=== PATIENT | female | born 1965 | race Caucasian/White ===

== ENCOUNTER 2018-03-29 08:28 | Inpatient (IN) | payer BC ==
[~2018-03-29] VITALS: Ht 157.5 cm; Wt 84.6 kg
[~2018-03-29 08:28] MED LIST: BACITRACIN 50,000 UNIT ONE; BUPIVACAINE/PF-EPI 0.5% 1:200K ONE; EPINEPHRINE 1 MG/ML, 1ML ONE; GENTAMICIN 80 MG/2 ML ONE; LIDOCAINE/PF 1%, 30ML ONE; THROMBIN 5,000 UNIT VIAL TP ONE; VANCOMYCIN 1,000 MG ONE
[2018-03-29] MEDS ORDERED: OXYcodone 5 MG/5 ML ORAL.SOL UDC PO PRN (09:00)
[2018-03-29] MEDS ORDERED: MEPERIDINE/PF 25MG/0.5ML IVPush PRN (09:00)
[2018-03-29] MEDS ORDERED: ONDANSETRON 2MG/ML, 2ML IVPush PRN (09:00)
[2018-03-29] MEDS ORDERED: LABETALOL 5MG/ML, 20ML IV PRN ×2 (09:00→18:30)
[2018-03-29] MEDS ORDERED: MIDAZOLAM 1 MG/ML, 2ML IV PRN (09:00)
[2018-03-29] MEDS ORDERED: HYDROmorphone 1 MG/ML, 1ML IV PRN (09:00)
[2018-03-29] MEDS ORDERED: GABA300C10 PO (09:02)
[2018-03-29] MEDS ORDERED: ASPI325T17 PO (09:02)
[2018-03-29] MEDS ORDERED: NAPR220C2 PO (09:02)
[2018-03-29] MEDS ORDERED: LACTATED RINGERS 1,000 ML IV SCH (09:04)
[2018-03-29] MEDS ORDERED: LIDOCAINE-MPF 1%, 2ML ONE (09:08)
[2018-03-29] MEDS ORDERED: LIDOCAINE-MPF 1%, 2ML INFIL ONE (09:30)
[2018-03-29] MEDS ORDERED: DEXAMETHASONE 4 MG/ML, 1ML ONE (10:37)
[2018-03-29] MEDS ORDERED: CEFAZOLIN 1,000 MG ONE ×4 (10:37→15:46)
[2018-03-29] MEDS ORDERED: ONDANSETRON 2MG/ML, 2ML ONE (10:37)
[2018-03-29] MEDS ORDERED: METOCLOPRAMIDE 5 MG/ML, 2ML ONE (10:37)
[2018-03-29] MEDS ORDERED: ROCURONIUM 10MG/ML,5ML ONE ×2 (10:38→12:58)
[2018-03-29] MEDS ORDERED: PROPOFOL 10 MG/ML, 20ML ONE ×5 (10:38→15:12)
[2018-03-29] MEDS ORDERED: MIDAZOLAM 1 MG/ML, 2ML ONE ×2 (10:38)
[2018-03-29] MEDS ORDERED: EPHEDRINE 50 MG/ML, 1ML ONE (10:38)
[2018-03-29] MEDS ORDERED: LIDOCAINE-MPF 2% ,5ML ONE (10:38)
[2018-03-29] MEDS ORDERED: FENTANYL PF 100 MCG/2ML ONE ×4 (10:39→17:08)
[2018-03-29] MEDS ORDERED: WATER-INJECTION,STERILE 10 ML IV ONE (10:45)
[2018-03-29] MEDS ORDERED: REMIFENTANIL 1 MG ONE (12:01)
[2018-03-29] MEDS ORDERED: KETAMINE 10 MG/ML, 20ML ONE (12:03)
[2018-03-29] MEDS ORDERED: LIDOCAINE GEL 2%, 5ML ONE (12:06)
[2018-03-29] MEDS ORDERED: GENTAMICIN 80 MG/2 ML ONE (12:16)
[2018-03-29] MEDS ORDERED: morphine SULFATE/PF 1 MG/ML, 10ML ONE (13:30)
[2018-03-29] MEDS ORDERED: OXYcodone 5 MG/5 ML ORAL.SOL UDC ONE ×2 (17:08→17:09)
[2018-03-29] MEDS: FENTANYL PF 100 MCG/2ML IV PRN ×2 (17:10→17:15)
[2018-03-29 18:00] VITALS: BP 117/59
[2018-03-29] MEDS ORDERED: DIAZEPAM 5 MG/ML, 2ML IV PRN (18:30)
[2018-03-29] MEDS ORDERED: DIAZEPAM 5 MG TABLET PO PRN (18:30)
[2018-03-29] MEDS ORDERED: HYDROmorphone 2 MG/ML, 1ML IM PRN (18:30)
[2018-03-29] MEDS ORDERED: ONDANSETRON 2MG/ML, 2ML IV PRN (18:30)
[2018-03-29] MEDS ORDERED: HYDROmorphone 2MG TABLET PO PRN (18:30)
[2018-03-29] MEDS: D5%-0.9% NACL+KCL 20MEQ 1,000 ML IV SCH (20:25)
[2018-03-29] MEDS: CEFAZOLIN PMX 1GM/50ML 50 ML IVPB SCH (20:25)
[2018-03-29 21:27] VITALS: BP 116/61
[2018-03-29] MEDS ORDERED: PROMETHAZINE 25 MG SUPP PR PRN (22:30)
[2018-03-29] MEDS ORDERED: PROCHLORPERAZINE 25 MG SUPP PR PRN (22:30)
[2018-03-29 22:58] LABS: TROPONIN I < 0.015 ng/mL (0.000-0.045)
[2018-03-29] MEDS: FAMOTIDINE 20 MG/2 ML IVPush SCH (23:06)
[2018-03-30 01:00] VITALS: BP 90/51
[2018-03-30] MEDS ORDERED: DIAZEPAM 5 MG/ML, 2ML IV PRN (02:00)
[2018-03-30] MEDS ORDERED: DIPHENHYDRAMINE 50 MG/ML, 1ML IVPush PRN (02:30)
[2018-03-30] MEDS: ACETAMINOPHEN 500 MG TABLET PO SCH ×5 (02:30→22:12)
[2018-03-30 03:05] VITALS: BP 111/66
[2018-03-30] MEDS: DIPHENHYDRAMINE 50 MG/ML, 1ML IVPush PRN ×2 (03:15→14:52)
[2018-03-30] MEDS: D5%-0.9% NACL+KCL 20MEQ 1,000 ML IV SCH ×3 (03:15→16:30)
[2018-03-30] MEDS ORDERED: NITROGLYCERIN 0.4 MG BOTTLE (25 TABS) SL PRN (03:30)
[2018-03-30] MEDS: CEFAZOLIN PMX 1GM/50ML 50 ML IVPB SCH (04:35)
[2018-03-30 05:49] LABS: BASOPHILS # (AUTO) 0.05 x10^3/uL (0-0.1); BASOPHILS % (AUTO) 1 % (0-1); EOSINOPHILS # (AUTO) 0.09 x10^3/uL (0-0.4); EOSINOPHILS % (AUTO) 1 % (1-7); LYMPHOCYTES # (AUTO) 1.07 x10^3/uL (1-3.4); LYMPHOCYTES % (AUTO) 11 % (22-44); MD NO; MEAN CORPUSCULAR HEMOGLOBIN 30.1 pg (27.0-34.8); MEAN CORPUSCULAR HGB CONC 33.5 g/dL (32.4-35.8); MEAN CORPUSCULAR VOLUME 89.9 fL (80-100); MEAN PLATELET VOLUME 8.6 fL (7.4-10.4); MONOCYTES # (AUTO) 0.62 x10^3/uL (0.2-0.8); MONOCYTES % (AUTO) 6 % (2-9); NEUTROPHILS # (AUTO) 8.16 x10^3/uL (1.8-6.8); NEUTROPHILS % (AUTO) 82 % (42-75); PLATELET COUNT 220 x10^3/uL (130-400); RED BLOOD COUNT 3.44 x10^6/uL (3.82-5.3); RED CELL DISTRIBUTION WIDTH 13.6 % (9.6-15.2)
[2018-03-30 06:21] LABS: ALBUMIN 2.9 g/dL (3.4-5.0); ANION GAP 7 mmol/L (5-15); CALCIUM 7.9 mg/dL (8.5-10.1); CHLORIDE 110 mmol/L (98-107)
[2018-03-30 06:29] LABS: ALANINE AMINOTRANSFERASE 17 U/L (12-78); ALKALINE PHOSPHATASE 67 U/L (45-117); BILIRUBIN,TOTAL 0.2 mg/dL (0.2-1.0); CHOL/HDL RATIO 2.6; CHOLESTEROL, TOTAL 161 mg/dL (140-239); CREATININE 0.54 mg/dL (0.55-1.02); HDL CHOL % 39 % (28-40); HDL CHOLESTEROL (DIRECT) 63 mg/dL (40-60); LDL CHOLESTEROL,CALCULATED 89 mg/dL (54-169); LDL/HDL RATIO 1.4 (0.5-3.0); TOTAL PROTEIN 6.3 g/dL (6.4-8.2); TRIGLYCERIDES 44 mg/dL (50-200); TROPONIN I < 0.015 ng/mL (0.000-0.045); VLDL CHOLESTEROL 9 mg/dL (0-25)
[2018-03-30 07:54] VITALS: BP 94/54
[2018-03-30] MEDS: FAMOTIDINE 20 MG/2 ML IVPush SCH ×2 (08:59→22:11)
[2018-03-30] MEDS: SENNA/DOCUSATE TABLET PO SCH (09:31)
[2018-03-30 11:24] LABS: TROPONIN I < 0.015 ng/mL (0.000-0.045)
[2018-03-30] MEDS ORDERED: REGADENOSON 0.4 MG/5 ML SYRINGE ONE (11:25)
[2018-03-30 14:58] VITALS: BP 126/77
[2018-03-30 19:48] VITALS: BP 105/60
[2018-03-30] MEDS: CEFAZOLIN PMX 1GM/50ML 50 ML IV SCH (19:55)
[2018-03-31 02:21] VITALS: BP 103/54
[2018-03-31] MEDS: ACETAMINOPHEN 500 MG TABLET PO SCH ×4 (04:45→23:52)
[2018-03-31] MEDS: CEFAZOLIN PMX 1GM/50ML 50 ML IV SCH ×3 (04:46→19:48)
[2018-03-31 07:16] VITALS: BP 97/60
[2018-03-31] MEDS: FAMOTIDINE 20 MG/2 ML IVPush SCH (08:51)
[2018-03-31] MEDS: SENNA/DOCUSATE TABLET PO SCH (08:53)
[2018-03-31] MEDS: DIPHENHYDRAMINE 50 MG/ML, 1ML IVPush PRN ×2 (08:58→23:51)
[2018-03-31 17:32] VITALS: BP 109/69
[2018-03-31 20:02] VITALS: BP 108/60
[2018-03-31] MEDS: FAMOTIDINE 20 MG TABLET PO SCH (22:26)
[2018-04-01 02:09] VITALS: BP 105/62
[2018-04-01] MEDS: CEFAZOLIN PMX 1GM/50ML 50 ML IV SCH ×2 (03:58→11:00)
[2018-04-01 07:40] VITALS: BP 117/71
[2018-04-01] MEDS: FAMOTIDINE 20 MG TABLET PO SCH (08:46)
[2018-04-01] MEDS: SENNA/DOCUSATE TABLET PO SCH (08:46)
[2018-04-01] MEDS: ACETAMINOPHEN 500 MG TABLET PO SCH ×2 (08:46→15:13)
[2018-04-01 12:33] VITALS: BP 95/65
[2018-04-01] MEDS ORDERED: TRAM50TA2 PO (16:01)
== END 2018-04-01 16:14 | disposition home or self-care (01) | DRG 460 ==
LOC: ORIP 08:28 → 4NOR 17:55 → 4EST 03-30 03:25 → 4NOR 03-30 19:30 → DCLOUNGE 04-01 15:51
PROVIDERS: ADMIT Orthopaedic Surgery Orthopaedic Surgery of the Spine; ATTEND Orthopaedic Surgery Orthopaedic Surgery of the Spine
PROC: 0QS004Z Reposition Lumbar Vertebra with Internal Fixation Device, Open Approach (ICD-10-PCS; 2018-03-29)
PROC: 0SH304Z Insertion of Internal Fixation Device into Lumbosacral Joint, Open Approach (ICD-10-PCS; 2018-03-29)
PROC: 01NR0ZZ Release Sacral Nerve, Open Approach (ICD-10-PCS; 2018-03-29)
PROC: 07DR3ZZ Extraction of Iliac Bone Marrow, Percutaneous Approach (ICD-10-PCS; 2018-03-29)
PROC: 4A11X4G Monitoring of Peripheral Nervous Electrical Activity, Intraoperative, External Approach (ICD-10-PCS; 2018-03-29)
PROC: 5A09357 Assistance with Respiratory Ventilation, Less than 24 Consecutive Hours, Continuous Positive Airway Pressure (ICD-10-PCS; 2018-03-29)
PROC: 0SG0071 Fusion of Lumbar Vertebral Joint with Autologous Tissue Substitute, Posterior Approach, Posterior Column, Open Approach (ICD-10-PCS; principal; 2018-03-29 10:30)
PROC: 5A09357 Assistance with Respiratory Ventilation, Less than 24 Consecutive Hours, Continuous Positive Airway Pressure (ICD-10-PCS; 2018-03-30)
PROC: 5A09357 Assistance with Respiratory Ventilation, Less than 24 Consecutive Hours, Continuous Positive Airway Pressure (ICD-10-PCS; 2018-03-31)
DX: M48.061 Spinal stenosis, lumbar region without neurogenic claudication (principal); M43.16 Spondylolisthesis, lumbar region; M47.26 Other spondylosis with radiculopathy, lumbar region; M48.07 Spinal stenosis, lumbosacral region; M53.2X6 Spinal instabilities, lumbar region; E78.5 Hyperlipidemia, unspecified; F41.9 Anxiety disorder, unspecified; G47.30 Sleep apnea, unspecified; K21.9 Gastro-esophageal reflux disease without esophagitis; I45.81 Long QT syndrome; E66.9 Obesity, unspecified; I95.9 Hypotension, unspecified; R11.2 Nausea with vomiting, unspecified; Z79.82 Long term (current) use of aspirin; Z79.899 Other long term (current) drug therapy; Z80.8 Family history of malignant neoplasm of other organs or systems; Z87.891 Personal history of nicotine dependence; Z90.721 Acquired absence of ovaries, unilateral; Z68.34 Body mass index [BMI] 34.0-34.9, adult
CPT/HCPCS: 36415; 72100; S0028; 71045; 78452; 80053; 80061; 84443; 84484; 85025; 86850; 86900; 86923; 93005; 93017; C1713; J0171; J0690; J1100; J2250; J2270; J2274; J2405; J2704; J2785; J3010; J3370; J3490; A9502; C1751; C1762; C9352; C9898; J1200; J1580; J2765; J3480; J7120